=== PATIENT | female | born 1990 | race Caucasian/White ===

== ENCOUNTER 2017-02-25 17:52 | Emergency (ER) | payer OTHER ==
[2017-02-25 17:58] VITALS: O2SAT 96
[2017-02-25] MEDS ORDERED: ONDANSETRON 4 MG/2 ML VIAL ONE (18:01)
[2017-02-25] MEDS ORDERED: ONDANSETRON DISINTEGRATING 4 MG TAB ONE (18:13)
[2017-02-25] MEDS ORDERED: ONDANSETRON DISINTEGRATING 4 MG TAB PO ONE (18:15)
[2017-02-25] MEDS ORDERED: NS 1,000 ML IV ONE (18:19)
--- NOTE | 2017-02-25 18:22 | EDPHY ---
H & P Smoking Status: Never smoked Time Seen by Provider: 02/25/17 18:00 HPI/ROS: CHIEF COMPLAINT: Vomiting, diarrhea HISTORY OF PRESENT ILLNESS: 26-year-old female presents to the emergency department with multiple episodes of vomiting and diarrhea since last night. Patient states that she was a woken out of her sleep initially with vomiting. She has vomited at least 15 times. She has had at least 20 episodes of watery diarrhea. No blood in her stool. No recent travel. No fevers or chills. She had a friend that had similar symptoms earlier in the week. No back pain. No urinary symptoms. Currently on her menstrual cycle. REVIEW OF SYSTEMS: Constitutional: No fever, no chills. Eyes: No double or blurry vision. ENT: No sore throat. Respiratory: No cough, no shortness of breath. Cardiac: No chest pain. Gastrointestinal: Vomiting or diarrhea. No abdominal pain. Genitourinary: No dysuria. Musculoskeletal: No neck or back pain. Skin: No rashes. Neurological: No headache. (ValeIsabella silva) Past Medical/Surgical History: Negative (EmaIsabella) Social History: negative (EmaIsabella M) Physical Exam: General Appearance: Alert, no distress. Initial heart rate 128 Eyes: Pupils equal and round. Extraocular motions are all intact. ENT: Mouth: Mucous membranes dry Respiratory: No wheezing, rhonchi, or rales, lungs are clear to auscultation. Cardiovascular: Regular rate and rhythm. Tachycardic. Gastrointestinal: Abdomen is soft and nontender, no masses, no rebound or guarding, bowel sounds normal. Neurological: Alert and oriented x 3, cranial nerves II through XII grossly intact Skin: Warm and dry, no rashes. Musculoskeletal: Nontender to palpate along the cervical, thoracic or lumbar spine. Neck is supple. Extremities: Full range of motion and no peripheral edema. Psychiatric: Patient is oriented X 3, there is no agitation. (EmaIsabella) Constitutional: Initial Vital Signs Temperature (C) 36.5 C 02/25/17 17:56 Heart Rate 128 H 02/25/17 17:56 Respiratory Rate 17 02/25/17 17:56 Blood Pressure 128/75 H 02/25/17 17:56 O2 Sat (%) 96 02/25/17 17:56 O2 Delivery Mode Room Air Allergies/Adverse Reactions: Sulfa (Sulfonamide Antibiotics) Allergy (Verified 02/25/17 17:56) Home Medications: Medication Instructions Recorded Nuvaring Vaginal Ring 02/25/17 Medical Decision Making ED Course/Re-evaluation: 26-year-old female presents to the emergency department with multiple episodes of vomiting and diarrhea since last night. Laboratory studies are unremarkable. The patient received IV normal saline and Zofran. She was feeling much better. Patient tolerated p.o. fluids. The patient will be discharged home. She was encouraged to return if she developed any recurring episodes of vomiting and diarrhea. The patient did not have any foreign travel. She was around some was similar symptoms earlier in the week. I do not think stool culture is indicated. This was discussed with the patient. (Isabella Boo) Differential Diagnosis: Including but not limited to viral gastroenteritis, bowel obstruction, acute appendicitis, urinary tract infection, pyelonephritis (Isabella Boo) Other Provider: The patient wasevaluatedand managed by themidlevel provider. Idiscussed the patient's presentation and course with thephysicianassistantor nurse practitionerand agree with theevaluation. My co-signature indicates that I have reviewed this chart and I agree with the findings and plan of care as documented. I am the secondary supervisingphysician. (Jennifer Ryan) - Data Points Laboratory Results: Laboratory Results 02/25/17 18:25 02/25/17 18:25 Medications Given: Discontinued Medications Sodium Chloride (Ns) 1,000 mls @ 0 mls/hr IV ONCE ONE PRN Reason: Wide Open Stop: 02/25/17 18:20 Last Admin: 02/25/17 18:32 Dose: 1,000 mls Ondansetron HCl (Zofran Odt) 4 mg PO EDNOW ONE Stop: 02/25/17 18:16 Last Admin: 02/25/17 18:15 Dose: 4 mg Ondansetron HCl (Zofran Odt 4 Mg Prepack#2) 1 btl TAKEHOME EDNOW ONE Stop: 02/25/17 20:59 Last Admin: 02/25/17 21:09 Dose: 1 btl Departure - Departure Disposition: Home, Routine, Self-Care Clinical Impression: Acute gastroenteritis Condition: Good Instructions: Ondansetron (By mouth), Gastroenteritis (ED) Additional Instructions: Clear liquids and then slowly advance diet as tolerated. Zofran as needed for vomiting. Referrals: SASHA SAAVEDRA [Primary Care Provider] - As per Instructions
[2017-02-25 18:32] LABS: % IMMATURE GRANULYOCYTES 0.4 % (0.0-1.1); ABSOLUTE IMMATURE GRANULOCYTES 0.05 10^3/uL (0.00-0.10); ADD DIFF? NO; ADD MORPH? NO; ADD SCAN? NO; ATYPICAL LYMPHOCYTE FLAG 0 (0-99); FRAGMENT RBC FLAG 0 (0-99); HEMATOCRIT 41.5 % (38.0-47.0); HEMOGLOBIN 14.6 g/dL (12.6-16.3); LEFT SHIFT FLG 0 (0-99); LIPEMIA HEMOLYSIS FLAG 90 (0-99); MEAN CELL HEMOGLOBIN 30.1 pg (27.9-34.1); MEAN CELL HEMOGLOBIN CONCENTR. 35.2 g/dL (32.4-36.7); MEAN CELL VOLUME 85.6 fL (81.5-99.8); MEAN PLATELET VOLUME 11.8 fL (8.7-11.7); PLATELET CLUMPS FLAG 0 (0-99); PLATELET COUNT 271 10^3/uL (150-400); RED BLOOD CELL COUNT 4.85 10^6/uL (4.18-5.33); RED CELL DISTRIBUTION WIDTH 12.2 % (11.5-15.2)
[2017-02-25 18:52] LABS: ANION GAP 14 mEq/L (8-16); CALCIUM 9.2 mg/dL (8.5-10.4); CARBON DIOXIDE 20 mEq/l (22-31); CHLORIDE 100 mEq/L (97-110); CREATININE 0.8 mg/dL (0.6-1.0); GLOMERULAR FILTRATION RATE > 60; GLUCOSE 125 mg/dL (70-100); POTASSIUM 4.4 mEq/L (3.5-5.2); SODIUM 134 mEq/L (134-144)
[2017-02-25 20:39] VITALS: RESP 16
[2017-02-25] MEDS ORDERED: ONDANSETRON 4MG PREPACK#2 BTL TAKEHOME ONE (20:58)
[2017-02-25 21:16] VITALS: BP 106/68; PULSE 82; TEMP 97.9
== END 2017-02-25 21:16 | disposition home or self-care (01) ==
DX: K52.9 Noninfective gastroenteritis and colitis, unspecified (principal)
CPT/HCPCS: J2405